=== PATIENT | female | born 1940 | race Caucasian/White ===

== ENCOUNTER → 2017-02-03 | Outpatient (CLI) | payer MEDICARE, BC ==
[~2017-02-03] MED LIST: NO HOME MEDICATIONS
== END ==
LOC: MC.RAD 14:37
DX: Z12.31 Encounter for screening mammogram for malignant neoplasm of breast (principal)

== ENCOUNTER → 2019-04-09 | Outpatient (CLI) | payer MEDICARE, BC | LOC: MC.RAD 14:10 | DX: Z12.31 Encounter for screening mammogram for malignant neoplasm of breast (principal) ==

== ENCOUNTER 2019-05-29 10:39 | Inpatient (IN) | payer MEDICARE, BC ==
[~2019-05-29] VITALS: Ht 154.9 cm; Wt 53.9 kg
[2019-05-29] MEDS ORDERED: TAGAMET HB200 MG PO (10:57)
[2019-05-29] MEDS ORDERED: CARAFATE 1GM1 G PO (10:58)
[2019-05-29 11:10] LABS: BASO % 0.3 % (0.0-2.0); EOS % 0.1 % (0-4.0); GRAN # 8.9 (1.4-6.5); GRAN % 80.7 % (42.2-75.2); HEMATOCRIT 41.8 % (37.0-47.0); HEMOGLOBIN 13.6 g/dl (12.5-16.0); LYMPH # 1.4 (1.2-3.4); LYMPH % 12.4 % (20.0-51.0); MEAN CELL VOLUME 94 fl (80.0-100.0); MEAN CORPUSCULAR HEMOGLOBIN 31 pg (27.0-31.0); MEAN CORPUSCULAR HGB CONC 33 g/dl (33.0-37.0); MEAN PLATELET VOLUME 10.9 fl (7.4-10.4); MONO # 0.7 (0.1-0.6); MONO % 6.1 % (1.7-9.3); PLATELET COUNT 179 K/mm3 (130-400); RED BLOOD COUNT 4.45 M/mm3 (4.10-5.30); REDCELL DISTRIBUTION WIDTH-CV 13.1 % (11.5-14.5)
[2019-05-29 11:16] LABS: ALANINE AMINOTRANSFERASE 33 U/L (9-52); ALBUMIN 4.7 gm/dL (3.5-5.0); ALKALINE PHOSPHATASE 93 U/L (50-136); ANION GAP 11 mmol/L (7-16); AST,SGOT 38 U/L (15-37); BILIRUBIN,TOTAL 0.5 mg/dL (0.0-1.0); BLOOD UREA NITROGEN 11 mg/dL (7-17); CALCIUM 9.2 mg/dL (8.4-10.2); CARBON DIOXIDE 24 mmol/L (22-30); CHLORIDE 102 mmol/L (98-107); CREATININE, serum 0.85 (0.52-1.25); GLUCOSE 119 mg/dL (74-106); POTASSIUM 3.7 mmol/L (3.4-5.0); SODIUM 137 mmol/L (137-145); TOTAL PROTEIN 7.9 gm/dL (6.4-8.2)
[2019-05-29 11:36] LABS: TROPONIN-I < 0.012 ng/mL (0.000-0.035)
[2019-05-29 11:37] LABS: INR 1.1 (0.8-3.0); PROTHROMBIN TIME 12.3 SECONDS (9.7-12.8)
--- NOTE | 2019-05-29 15:00 | NUR ---
Patient arrived to floor from ED via bed at approximately 1440. Patient is alert and oriented, answers questions appropriately. Telemetry applied per order. Family at patient's bedside. Patient denies needs at this time, call light within reach.
[2019-05-29 17:18] VITALS: BP 138/54; PULSE 70; TEMP 100.5
[2019-05-29 17:19] VITALS: BP 138/54; PULSE 61; TEMP 100.5
[2019-05-29 19:29] VITALS: BP 130/63; PULSE 77; TEMP 100.4; TEMP 98.3
--- NOTE | 2019-05-29 20:00 | NUR ---
Patient assessed at this time. Alert and oriented x 4, and able to make needs known. Denies having pain and discomfort. NS running at 100 ml/hr to peripheral IV to left AC per ordes. Site is without redness, warmth, swelling, and pain. LS CTA. Respirations even and unlabored. Denies SOB and dyspnea. Occasional moist cough noted, but no sputum production. HRR. Telemetry in place-NS. Capillary refill less than 3 seconds. Non-tenting skin turgor. BSAx4. Abdomen soft and non-tender. No edema. Seizure precautions in place. High fall risk precautions in place related to fall at home. Patient's temp 100.4. Called [employer]. New order for PRN APAP, as well as UA and blood cultures. Updated patient and family on labs related to fever. Family remains at bedside. Voices no other questions, needs, or concerns at this time. Call light is within reach.
[2019-05-29 23:40] VITALS: BP 125/64; PULSE 69; TEMP 98.3
[2019-05-29 23:58] LABS: COLLECTION METHOD CLEAN CATCH
[2019-05-30 00:07] LABS: MUCOUS Present /lpf; PH 6 (5-8); SQUAMOUS EPITHELIAL 0-2 /hpf; URINE APPEARANCE Clear; URINE BACTERIA None Seen /hpf; URINE BILIRUBIN Negative (NEGATIVE); URINE BLOOD Negative (NEGATIVE); URINE COLOR Straw; URINE GLUCOSE Negative (NEGATIVE); URINE KETONE 1+ (NEGATIVE); URINE LEUKOCYTE ESTERASE Negative (NEGATIVE); URINE NITRATE Negative (NEGATIVE); URINE PROTEIN(semi-quant) Negative (NEGATIVE); URINE RBC 0-2 /hpf; URINE UROBILINOGEN Negative (NEGATIVE)
[2019-05-30 03:09] VITALS: BP 145/73; PULSE 58; TEMP 98
--- NOTE | 2019-05-30 05:53 | NUR ---
Patient has not had any further fevers this shift since receiving APAP. Neuro checks remain WNL for patient. Voices no questions, needs, or concerns. NS continues to run at 100 ml/hr to peripheral IV to left AC. Resting in bed with call light within reach. remains at bedside.
[2019-05-30 07:14] LABS: BASO % 0.5 % (0.0-2.0); EOS % 0.2 % (0-4.0); GRAN # 3.9 (1.4-6.5); GRAN % 58.5 % (42.2-75.2); LYMPH # 2.1 (1.2-3.4); LYMPH % 31.3 % (20.0-51.0); MEAN CELL VOLUME 95 fl (80.0-100.0); MEAN CORPUSCULAR HGB CONC 32 g/dl (33.0-37.0); MEAN PLATELET VOLUME 11.3 fl (7.4-10.4); MONO # 0.6 (0.1-0.6); MONO % 9.2 % (1.7-9.3); PLATELET COUNT 161 K/mm3 (130-400); RED BLOOD COUNT 3.75 M/mm3 (4.10-5.30); REDCELL DISTRIBUTION WIDTH-CV 13.2 % (11.5-14.5)
[2019-05-30 07:19] LABS: HEMATOCRIT 35.6 % (37.0-47.0); HEMOGLOBIN 11.3 g/dl (12.5-16.0); MEAN CORPUSCULAR HEMOGLOBIN 30 pg (27.0-31.0)
[2019-05-30 07:33] LABS: CALCIUM 8.3 mg/dL (8.4-10.2); CREATININE, serum 0.75 (0.52-1.25); POTASSIUM 3.8 mmol/L (3.4-5.0)
[2019-05-30 08:08] VITALS: BP 127/53; PULSE 72; TEMP 99.3
--- NOTE | 2019-05-30 10:51 | NUR ---
Patient is awake and alert visiting with son. Did assist getting up to the restroom, gait steady, denied dizziness. Urine observed to be a clear yellow in the toilet. Earlier this morning patient notified this nurse that her throat has been sore for 3 days. Did observe a little swelling during assessment. Did notify provider and he assessed. New order for antibiotic ordered, patient and son were pleased with this. Patient is currently on her way to have MRI of the brain done. She had reported earlier that she was claustrophobic, was informed that the testing equipment has changed, reassured her that she would have a call light for assistance and she would be able to communicate with the tech. I did offer to request an anxiety medication prior to testing and she declined for fear of affecting recent events. She stated she was pleased to know the information that was provided.
[2019-05-30 12:01] VITALS: BP 136/52; PULSE 60; TEMP 98
--- NOTE | 2019-05-30 12:55 | NUR ---
Received call from radiologist regarding MRI result, did inform hospitalist and was instructed to notify Dr. Jacobsen, was able to reach him and he is to come up to round later today.
[2019-05-30 16:14] VITALS: BP 159/69; PULSE 72; TEMP 99.6
[2019-05-30 19:15] VITALS: BP 158/78; PULSE 79; TEMP 102.1
--- NOTE | 2019-05-30 20:16 | NUR ---
SHIFT ASSESSMENT COMPLETE. SON IN ROOM. EXPLAINED TO PT AND SON THAT BED ALARM WILL BE PUT ON FOR SAFETY AT NIGHT. BOTH ARE OK WITH THIS. MEDS GIVEN. WILL RECHECK TEMP A LITTLE LATER. CALL LIGHT IN REACH. BED ALARM ON.
[2019-05-30 23:58] VITALS: BP 129/62; PULSE 68; TEMP 98.7
[2019-05-31 05:06] VITALS: BP 149/67; PULSE 78; TEMP 99.1
--- NOTE | 2019-05-31 06:34 | NUR ---
Son left around 4:45, states he has to watch his granddaughter. Will be back later. Pt has had a good night. Explained to her that I put the bed alarm on just for safety since she is in unfamiliar surroundings. Took her HS meds with no problems. Call light in reach.
[2019-05-31 06:55] LABS: BASO % 0.4 % (0.0-2.0); EOS % 0.3 % (0-4.0); GRAN # 4.6 (1.4-6.5); GRAN % 68.7 % (42.2-75.2); HEMOGLOBIN 11.9 g/dl (12.5-16.0); LYMPH # 1.6 (1.2-3.4); LYMPH % 23.7 % (20.0-51.0); MEAN CELL VOLUME 93 fl (80.0-100.0); MEAN CORPUSCULAR HEMOGLOBIN 31 pg (27.0-31.0); MEAN CORPUSCULAR HGB CONC 33 g/dl (33.0-37.0); MEAN PLATELET VOLUME 11.6 fl (7.4-10.4); MONO # 0.4 (0.1-0.6); MONO % 6.6 % (1.7-9.3); PLATELET COUNT 154 K/mm3 (130-400)
[2019-05-31 07:05] LABS: CALCIUM 8.6 mg/dL (8.4-10.2); CREATININE, serum 0.62 (0.52-1.25); POTASSIUM 3.8 mmol/L (3.4-5.0)
[2019-05-31 07:08] LABS: HEMATOCRIT 36.3 % (37.0-47.0)
[2019-05-31 07:37] VITALS: BP 104/49; PULSE 76; TEMP 100.4
--- NOTE | 2019-05-31 09:44 | NUR ---
Patient is awake and alert in room. Did speak with son earlier this morning and he requests if patient is sleeping to allow her to sleep, breakfast held back for her per his request. Once patient woke up, she was displeased that her breakfast was late. I did tell her that her son said he would prefer that. Did assit patient to the restroom, gait was steady, and she was assisted back to bed. Took morning medications without problem. Did request hot tea and was provided with it. No other needs verbalized, call light and personal items are within reach.
[2019-05-31 11:38] VITALS: BP 134/81; PULSE 81; TEMP 99.2
[2019-05-31 15:14] LABS: COLLECTION METHOD CLEAN CATCH
[2019-05-31 15:27] LABS: MUCOUS Present /lpf; PH 5 (5-8); SQUAMOUS EPITHELIAL 0-2 /hpf; URINE APPEARANCE Clear; URINE BACTERIA None Seen /hpf; URINE BILIRUBIN Negative (NEGATIVE); URINE BLOOD Negative (NEGATIVE); URINE COLOR Yellow; URINE GLUCOSE Negative (NEGATIVE); URINE KETONE 1+ (NEGATIVE); URINE LEUKOCYTE ESTERASE Negative (NEGATIVE); URINE NITRATE Negative (NEGATIVE); URINE PROTEIN(semi-quant) Negative (NEGATIVE); URINE RBC 0-2 /hpf; URINE UROBILINOGEN Negative (NEGATIVE)
[2019-05-31 16:10] VITALS: BP 127/58; PULSE 78; TEMP 98.2
--- NOTE | 2019-05-31 16:56 | NUR ---
Drill Runner met with patient to discuss discharge planning. Patient lives in [place] with her , Kim (ph#[phone]). Patient currently sees Dr. Woodward for primary care although is considering changing PCP. Patient obtains medications from [facility] with no difficulty. Patient reports independence with ADLS and has no DME. Patient has DPOA-HC although copies are located at home. Patient plans to return home upon discharge possibly with outpatient PT, per PT's recommendation. Patient states she may want to receive outpatient PT here in [place]. SW will continue to follow as needed.
--- NOTE | 2019-05-31 19:21 | NUR ---
Patient has had a quiet shift. Did test postive for parainfluenza, precautions are in place and family has been made aware of precautions to take. They were not wearing any masks when entering during report. Call light and personal items are within reach.
[2019-05-31 19:27] VITALS: BP 129/52; PULSE 69
[2019-05-31 23:27] VITALS: BP 136/59; PULSE 74; TEMP 98.7
--- NOTE | 2019-06-01 02:12 | NUR ---
Patient resting in bed when arriving to the room. Family at bedside. Education provided on droplet precautions, antibiotic usage, and pending test results. All questions answered. Patient and family verbalized understanding. Neuros within normal limits. Denies pain. Noted to sleep well throughout the night.
[2019-06-01 03:34] VITALS: BP 140/63; PULSE 72; TEMP 98.9
[2019-06-01 06:51] LABS: BASO % 0.5 % (0.0-2.0); GRAN % 47.7 % (42.2-75.2); HEMATOCRIT 37.9 % (37.0-47.0); HEMOGLOBIN 12.3 g/dl (12.5-16.0); LYMPH # 1.7 (1.2-3.4); LYMPH % 41.7 % (20.0-51.0); MEAN CELL VOLUME 93 fl (80.0-100.0); MEAN CORPUSCULAR HEMOGLOBIN 30 pg (27.0-31.0); MEAN CORPUSCULAR HGB CONC 33 g/dl (33.0-37.0); MEAN PLATELET VOLUME 10.8 fl (7.4-10.4); MONO # 0.4 (0.1-0.6); MONO % 8.9 % (1.7-9.3); PLATELET COUNT 157 K/mm3 (130-400); RED BLOOD COUNT 4.06 M/mm3 (4.10-5.30); REDCELL DISTRIBUTION WIDTH-CV 12.8 % (11.5-14.5)
[2019-06-01 07:04] LABS: CALCIUM 8.9 mg/dL (8.4-10.2); CHOLESTEROL RISK RATIO 3.9; CREATININE, serum 0.77 (0.52-1.25); POTASSIUM 3.8 mmol/L (3.4-5.0)
[2019-06-01 07:27] VITALS: BP 138/69; PULSE 69; TEMP 98.1
--- NOTE | 2019-06-01 09:11 | NUR ---
Pt is awake and A/Ox4, she denies pain or discomfort. Saline lock to left AC is free of complications. Pt states she feels overall "better." Pt denies any other needs.
[2019-06-01] MEDS ORDERED: PLAVIX 75MG TAB75 MG PO (09:23)
[2019-06-01] MEDS ORDERED: KEPPRA 500MG500 MG PO (09:23)
[2019-06-01] MEDS ORDERED: LIPITOR 10MG10 MG PO (09:29)
[2019-06-01] MEDS ORDERED: AMOXICILLIN 8751 TAB PO (09:44)
--- NOTE | 2019-06-01 12:59 | NUR ---
School Director attended clinical rounds with the team. Patient to discharge today. Per PT's recommendation, patient needs single point cane. SW met with patient and presented patient choice form. Patient selected [facility] and provided signature. JOSE completed order form and obtained signature from Jessica, Nurse Practitioner. JOSE faxed referral including PT notes to [facility]. Linda at [facility] contacted JOSE and advised they would not be able to deliver. JOSE spoke with Jessica, HOME CARE COORDINATOR and patient who agreed to apple picker cane directly following discharge. Patient states her son will be here at 2:00pm to pick her up and they will apple picker the cane from [facility].
--- NOTE | 2019-06-01 13:50 | NUR ---
Pt was discharged home from hospital. All discharge instructions and paperwork was reviewed with pt who expressed understanding and had no questions. New prescriptions sent to pharm. Saline lock was removed, catheter tip intact. Pt was escorted out of facility by staff.
== END 2019-06-01 13:53 | disposition home or self-care (01) | DRG 100 ==
LOC: COL.ER 10:39 → MEDICAL 12:40
PROVIDERS: Emergency Medicine; Nurse Practitioner Family; ADMIT Student in an Organized Health Care Education/Training Program
DX: G40.409 Other generalized epilepsy and epileptic syndromes, not intractable, without status epilepticus (principal); I63.9 Cerebral infarction, unspecified; G93.9 Disorder of brain, unspecified; K21.9 Gastro-esophageal reflux disease without esophagitis; D72.829 Elevated white blood cell count, unspecified; M54.81 Occipital neuralgia; K27.9 Peptic ulcer, site unspecified, unspecified as acute or chronic, without hemorrhage or perforation; K58.9 Irritable bowel syndrome, unspecified
CPT/HCPCS: 99232-AI; 99233-AI; 99239; A4216; A9585; J0696; J1650; J1953; J7030

== ENCOUNTER → 2020-03-23 | Outpatient (CLI) | payer MEDICARE, BC ==
[~2020-03-23] MED LIST changes: +AMOXICILLIN 8751 TAB PO; +CARAFATE 1GM1 G PO; +KEPPRA 500MG500 MG PO; +LIPITOR 10MG10 MG PO; +PLAVIX 75MG TAB75 MG PO; +TAGAMET HB200 MG PO
== END ==
LOC: COL.RAD 10:00
DX: I63.9 Cerebral infarction, unspecified (principal); M54.12 Radiculopathy, cervical region; R56.9 Unspecified convulsions

== ENCOUNTER → 2020-10-24 | Outpatient (CLI) | payer MEDICARE, BC | LOC: MC.RAD 11:30 | DX: Z12.31 Encounter for screening mammogram for malignant neoplasm of breast (principal) ==